=== PATIENT | male | born 1995 | race American Indian/Alaskan Native ===

== ENCOUNTER 2017-06-07 06:42 | Emergency (ER) | payer MEDICAID ==
[2017-06-07 07:20] VITALS: BP 121/85
--- NOTE | 2017-06-07 08:44 | Emergency Department Report ---
ED ENT HPI - General Chief complaint: Dental/Oral Stated complaint: TOOTH ACHE Time Seen by Provider: 06/07/17 07:35 Source: patient Mode of arrival: Ambulatory Limitations: No Limitations - History of Present Illness Initial comments: This is a 21-year-old male that presents to the ED c/o toothache x1 week. Patient describes toothache as aching with a level of 10 out of 10. Patient denies any trauma. Denies any stiff neck, headache, chest pain, short of breath , facial swelling, numbness, tingling, fever, chills, nausea or vomiting. He denies any allergies or past medical history. MD complaint: tooth pain -: Gradual, week(s) (1) Severity: moderate Severity scale (0 -10): 10 Quality: aching Consistency: constant Improves with: none Worsens with: none Context- Dental: history of dental caries Associated Symptoms: toothache. denies: fever, cough, gum swelling, pain with swallowing, sore throat, tinnitus, hearing loss, discharge from ear, rhinorrhea - Related Data Previous Rx's Medication Instructions Recorded Last Taken Type Ibuprofen [Motrin] 600 mg PO Q6H PRN #20 tablet 01/13/14 Unknown Rx Oxymetazoline 0.05% [Afrin] 1 spray NS Q12H PRN #1 bottle 01/13/14 Unknown Rx Pseudoephedrine [Sudafed] 60 mg PO Q6H PRN #30 tablet 01/13/14 Unknown Rx Amoxicillin [Trimox CAP] 1,000 mg PO Q8H #60 capsule 01/25/14 Unknown Rx HYDROcodone/APAP 5-325 [[place] 1 each PO Q6HR PRN #8 tablet 01/25/14 Unknown Rx 5/325 mg] Amoxicillin/K Clav Tab [Augmentin 1 tab PO Q12HR #20 tab 06/07/17 Unknown Rx 875 mg] Ibuprofen [Motrin 600 MG tab] 600 mg PO Q8H PRN #30 tablet 06/07/17 Unknown Rx Allergies Allergy/AdvReac Type Severity Reaction Status Date / Time No Known Allergies Allergy Unverified 01/13/14 17:24 ED Dental HPI - General Chief complaint: Dental/Oral Stated complaint: TOOTH ACHE Time Seen by Provider: 06/07/17 07:35 Source: patient Mode of arrival: Ambulatory Limitations: No Limitations - Related Data Previous Rx's Medication Instructions Recorded Last Taken Type Ibuprofen [Motrin] 600 mg PO Q6H PRN #20 tablet 01/13/14 Unknown Rx Oxymetazoline 0.05% [Afrin] 1 spray NS Q12H PRN #1 bottle 01/13/14 Unknown Rx Pseudoephedrine [Sudafed] 60 mg PO Q6H PRN #30 tablet 01/13/14 Unknown Rx Amoxicillin [Trimox CAP] 1,000 mg PO Q8H #60 capsule 01/25/14 Unknown Rx HYDROcodone/APAP 5-325 [[place] 1 each PO Q6HR PRN #8 tablet 01/25/14 Unknown Rx 5/325 mg] Amoxicillin/K Clav Tab [Augmentin 1 tab PO Q12HR #20 tab 06/07/17 Unknown Rx 875 mg] Ibuprofen [Motrin 600 MG tab] 600 mg PO Q8H PRN #30 tablet 06/07/17 Unknown Rx Allergies Allergy/AdvReac Type Severity Reaction Status Date / Time No Known Allergies Allergy Unverified 01/13/14 17:24 ED Review of Systems ROS: Stated complaint: TOOTH ACHE Other details as noted in HPI Constitutional: denies: chills, fever Eyes: denies: eye pain, eye discharge, vision change ENT: dental pain. denies: ear pain, throat pain Respiratory: denies: cough, shortness of breath, wheezing Cardiovascular: denies: chest pain, palpitations Endocrine: no symptoms reported Gastrointestinal: denies: abdominal pain, nausea, diarrhea Genitourinary: denies: urgency, dysuria Musculoskeletal: denies: back pain, joint swelling, arthralgia Skin: denies: rash, lesions Neurological: denies: headache, weakness, paresthesias Psychiatric: denies: anxiety, depression Hematological/Lymphatic: denies: easy bleeding, easy bruising ED Past Medical Hx - Past Medical History Previous Medical History?: No - Surgical History Past Surgical History?: No - Social History Smoking Status: Never Smoker - Medications Home Medications: Home Medications Medication Instructions Recorded Confirmed Last Taken Type Ibuprofen [Motrin] 600 mg PO Q6H PRN #20 tablet 01/13/14 Unknown Rx Oxymetazoline 0.05% [Afrin] 1 spray NS Q12H PRN #1 bottle 01/13/14 Unknown Rx Pseudoephedrine [Sudafed] 60 mg PO Q6H PRN #30 tablet 01/13/14 Unknown Rx Amoxicillin [Trimox CAP] 1,000 mg PO Q8H #60 capsule 01/25/14 Unknown Rx HYDROcodone/APAP 5-325 [[place] 1 each PO Q6HR PRN #8 tablet 01/25/14 Unknown Rx 5/325 mg] Amoxicillin/K Clav Tab [Augmentin 1 tab PO Q12HR #20 tab 06/07/17 Unknown Rx 875 mg] Ibuprofen [Motrin 600 MG tab] 600 mg PO Q8H PRN #30 tablet 06/07/17 Unknown Rx ED Physical Exam - General Limitations: No Limitations General appearance: alert, in no apparent distress - Head Head exam: Present: atraumatic, normocephalic, normal inspection - Eye Eye exam: Present: normal appearance, PERRL, EOMI. Absent: scleral icterus, conjunctival injection, nystagmus, periorbital swelling, periorbital tenderness - ENT ENT exam: Present: normal exam, normal orophraynx, mucous membranes moist, TM's normal bilaterally, normal external ear exam - Expanded ENT Exam Expanded Mouth exam: Present: normal external inspection, tongue normal. Absent: drooling, trismus, muffled voice, tongue elevation, laceration, other (no facial swelling. No pus, no drainage, no fluctuance. No signs of any abscess.) Teeth exam: Present: dental caries, fractured tooth #, dental tenderness # (14) , gingival enlargement 1 - Fractured, Dental Tenderness Throat exam: Positive: normal inspection, other (uvula midline). Negative: tonsillar erythema, tonsillomegaly, tonsillar exudate, R peritonsillar mass, L peritonsillar mass - Neck Neck exam: Present: normal inspection, full ROM. Absent: tenderness, meningismus, lymphadenopathy, thyromegaly - Respiratory Respiratory exam: Present: normal lung sounds bilaterally. Absent: respiratory distress, wheezes, rales, rhonchi, stridor, chest wall tenderness, accessory muscle use, decreased breath sounds, prolonged expiratory - Cardiovascular Cardiovascular Exam: Present: regular rate, normal rhythm, normal heart sounds. Absent: bradycardia, tachycardia, irregular rhythm, systolic murmur, diastolic murmur, rubs, gallop - GI/Abdominal GI/Abdominal exam: Present: soft, normal bowel sounds - Rectal Rectal exam: Present: deferred - Extremities Exam Extremities exam: Present: normal inspection, full ROM, normal capillary refill. Absent: tenderness, pedal edema, joint swelling, calf tenderness - Back Exam Back exam: Present: normal inspection, full ROM. Absent: tenderness, CVA tenderness (R), CVA tenderness (L), muscle spasm, paraspinal tenderness, vertebral tenderness, rash noted - Neurological Exam Neurological exam: Present: alert, oriented X3, CN II-XII intact, normal gait, reflexes normal - Psychiatric Psychiatric exam: Present: normal affect, normal mood - Skin Skin exam: Present: warm, dry, intact, normal color. Absent: rash ED Course Vital Signs 06/07/17 07:16 Temperature 98.4 F Pulse Rate 65 Respiratory 18 Rate Blood Pressure 121/85 O2 Sat by Pulse 99 Oximetry - Reevaluation(s) Reevaluation #1: 06/07/17 08:43 Period is speak in full sentences but no signs of distress. ED Medical Decision Making - Medical Decision Making ED course; this is a 21-year-old male that presents with dental caries and gingivitis 1- patient was examined myself. Patient is hemodynamically stable. 2- patient also received ibuprofen 800 mg by mouth in the ED for pain. 3- patient received Augmentin and ibuprofen at discharg and was instructed that there was full course of antibiotics. 4- patient was notified to follow-up with a dentist in 24 hours and observe symptoms of facial swelling, pus, drainage, stiff neck, headache, chest pain, short of breath, blurry vision, fever, chills, or symptoms of worsening return to emergency room as soon as possible 5- At the time of d/c, patient is stable with no signs of distress. Patient stated she agrees and understands to the d/c instructions and treatment plan. Critical care attestation.: If time is entered above; I have spent that time in minutes in the direct care of this critically ill patient, excluding procedure time. ED Disposition Clinical Impression: Dental caries, Gingivitis Disposition: - TO HOME OR SELFCARE Is pt being admited?: No Does the pt Need Aspirin: No Condition: Stable Instructions: Dental Caries (ED), Gingivitis (ED), Amoxicillin/Clavulanate Potassium (By mouth), Ibuprofen (By mouth) Additional Instructions: follow-up with a dentist in 24 hours and observe symptoms of facial swelling, pus, drainage, stiff neck, headache, chest pain, short of breath, blurry vision , fever, chills, or symptoms of worsening return to emergency room as soon as possible Prescriptions: Amoxicillin/K Clav Tab [Augmentin 875 mg] 1 tab PO Q12HR #20 tab Ibuprofen [Motrin 600 MG tab] 600 mg PO Q8H PRN #30 tablet PRN Reason: Pain Referrals: PRIMARY CAREMD [Primary Care Provider] - 3-5 Days ANDREW MCELROY MD [Staff Physician] - 3-5 Days [facility] [Outside] - [address] [facility] [Outside] - 24 Hours Forms: Work/School Release Form(ED)
[2017-06-07] MEDS ORDERED: MOTRIN PO ONE (08:49)
== END 2017-06-07 09:06 | disposition home or self-care (01) ==
LOC: ED 06:42
DX: K02.9 Dental caries, unspecified (principal); K05.10 Chronic gingivitis, plaque induced
CPT/HCPCS: 99282